=== PATIENT | female | born 1990 | race Two or more races ===

== ENCOUNTER 2017-06-26 11:07 | Emergency (ER) | payer BC ==
[2017-06-26 11:15] VITALS: BP 111/73; PULSE 82; TEMP 98; O2SAT 100; BMI 21.7
--- NOTE | 2017-06-26 11:54 | ED PDOC ---
HPI: Female Pain Time Seen by Provider: 06/26/17 11:18 Chief Complaint (Nursing): Female Genitourinary Chief Complaint (Provider): vaginal bleeding History Per: Patient History/Exam Limitations: no limitations Associated Symptoms: denies: Fever, Chills, Nausea, Vomiting, Diarrhea, Loss Of Appetite, Back Pain, Chest Pain, Constipation, Urinary Symptoms Additional Complaint(s): 27yo F in ED for eval of vaginal bleeding since last night 2 full pad with clots and headache. pt is -6 weeks . [facility] no dizziness nausea or vomiting. no fever and no severe abd pain. Abnormal Vaginal Bleeding: Yes : 2 Para: 1 Past Medical History Reviewed: Historical Data, Nursing Documentation, Vital Signs Vital Signs: Last Vital Signs Temp 98 F 06/26/17 11:14 Pulse 82 06/26/17 11:14 Resp BP 111/73 06/26/17 11:14 Pulse Ox 100 06/26/17 11:14 - Medical History PMH: No Chronic Diseases - Family History Family History: States: No Known Family Hx - Home Medications Home Medications: Ambulatory Orders Medication Instructions Recorded Nitrofurantoin Macrocrystals 100 mg PO BID #14 cap 06/26/17 [Macrobid] - Allergies Allergies/Adverse Reactions: Allergies Allergy/AdvReac Type Severity Reaction Status Date / Time Penicillins Allergy RASH Verified 06/26/17 11:40 Review of Systems ROS Statement: Except As Marked, All Systems Reviewed And Found Negative Genitourinary Female: Positive for: Vaginal Bleeding Physical Exam - Reviewed Nursing Documentation Reviewed: Yes Vital Signs Reviewed: Yes - Physical Exam Appears: Positive for: Well, Non-toxic, No Acute Distress Skin: Positive for: Normal Color, Warm, DRY Cardiovascular/Chest: Positive for: Regular Rate, Rhythm Respiratory: Positive for: CNT, Normal Breath Sounds Gastrointestinal/Abdominal: Positive for: Normal Exam, Bowel Sounds, Soft, Tenderness Back: Positive for: Normal Inspection. Negative for: L CVA Tenderness, R CVA Tenderness Extremity: Positive for: Normal ROM Neurologic/Psych: Positive for: Alert, Oriented - Laboratory Results Result Diagrams: 06/26/17 12:12 06/26/17 12:12 - ECG O2 Sat by Pulse Oximetry: 100 - Progress ED Course And Treament: r/o ectopic Orders Category Date Time Status ABO/RH TYPE Stat BBK 06/26/17 11:51 Uncollected TYPE AND SCREEN Stat BBK 06/26/17 11:51 Uncollected BETA-HCG,QUANTITATIVE Stat Chem 06/26/17 11:51 Uncollected COMP METABOLIC PANEL Stat Chem 06/26/17 11:51 Uncollected CBC Stat JASSI 06/26/17 11:51 Uncollected URINALYSIS Stat URINALYSIS 06/26/17 11:51 Uncollected 1ST TRIMESTER SINGLE [US] Stat US 06/26/17 11:51 Ordered Medical Decision Making Medical Decision Making: prelim results: show no IUP. pt understands it is not official results, but unwilling to wait. PT made aware that if results are significantly abdnormal. she will be contacted. PT advised t have obgyn f.u and monitor for excessive bleeding and to have repeat Beta HCG. Vital Signs - 24 hr 06/26/17 06/26/17 11:14 11:54 Temperature 98 F Pulse Rate 82 Blood Pressure 111/73 O2 Sat by Pulse 100 100 Oximetry 06/26/17 12:12 06/26/17 12:12 Disposition - Clinical Impression Clinical Impression: Threatened - Patient ED Disposition Is Patient to be Admitted: No Counseled Patient/Family Regarding: Studies Performed, Diagnosis, Need For Followup, Rx Given - Disposition Disposition: Routine/Home Disposition Time: 15:52 Condition: STABLE Prescriptions: Nitrofurantoin Macrocrystals [Macrobid] 100 mg PO BID #14 cap Instructions: Threatened Miscarriage (ED) Forms: Sw[employer] (Spanish)
[2017-06-26 12:57] LABS: HEMATOCRIT 37.6 % (34.0-47.0); MEAN CELL VOLUME 87.9 fl (81.0-99.0); MEAN CORPUSCULAR HEMOGLOBIN 29.1 pg (27.0-31.0); MEAN CORPUSCULAR HGB CONC 33.1 g/dL (33.0-37.0); RED CELL DISTRIBUTION WIDTH 14.4 % (11.5-14.5); WHITE BLOOD COUNT 10.2 K/uL (4.8-10.8)
[2017-06-26 13:02] LABS: RBC URINE 21 /hpf (0-3); URINE BACTERIA RARE (<OCC); URINE BILIRUBIN NEGATIVE (NEGATIVE); URINE BLOOD MODERATE (NEGATIVE); URINE COLOR YELLOW (YELLOW); URINE GLUCOSE (UA) NEG (Normal); URINE KETONE NEGATIVE (NEGATIVE); URINE LEUKOCYTE ESTERASE NEG Leu/uL (Negative); URINE PROTEIN NEGATIVE (NEGATIVE); URINE UROBILINOGEN 0.2-1.0 mg/dL (0.2-1.0); WBC URINE 2 /hpf (0-5)
[2017-06-26 13:14] LABS: ALB/GLOB RATIO 1.5 (1.0-2.1); ALKALINE PHOSPHATASE 51 U/L (38-126); ALT/SGPT 24 U/L (9-52); AST/SGOT 27 U/L (14-36); BILIRUBIN,TOTAL 0.4 mg/dl (0.2-1.3); BLOOD UREA NITROGEN 10 mg/dl (7-17); CALCIUM 9.1 mg/dL (8.4-10.2); CARBON DIOXIDE 27 mmol/L (22-30); CHLORIDE 106 mmol/L (98-107); GFR AFRICAN-AMERICAN > 60; GLUCOSE,RANDOM 100 mg/dL (65-105); SODIUM 145 mmol/l (132-148); TOTAL PROTEIN 7.3 G/DL (6.3-8.2)
--- NOTE | 2017-06-26 15:42 | US ---
HISTORY: vaginal bleeding COMPARISON: None available. TECHNIQUE: Transabdominal FINDINGS: UTERUS: Measures 9.7 x 5.3 x 4.1 cm. Normal in size and appearance. No fibroid or other mass lesion seen. ENDOMETRIUM: Measures 14 mm in diameter. No intrauterine gestational sac identified. There is no fluid seen within the endometrial cavity. CERVIX: No cervical abnormality identified. RIGHT OVARY: Measures 2.6 x 2.8 x 3.0 cm. No solid mass. Normal flow. 1.8 cm follicular cyst noted LEFT OVARY: Measures 3.1 x 2.7 x 2.0 cm. No solid mass. Normal flow. FREE FLUID: Small amount of free fluid noted in right adnexal region. OTHER FINDINGS: None. IMPRESSION: No intrauterine gestation identified. Nonspecific small amount of free fluid in right adnexal region. Otherwise unremarkable. Please note that ectopic gestation cannot be ruled out in the case of positive beta HCG, in the absence of an intrauterine gestation.
== END 2017-06-26 16:07 | disposition home or self-care (01) ==
LOC: H.ER 11:07
DX: O20.0 Threatened abortion (principal); Z88.0 Allergy status to penicillin